=== PATIENT | male | born 1965 | race Caucasian/White ===

== ENCOUNTER 2016-11-19 08:20 | Day surgery (SDC) | payer BC ==
[~2016-11-19] VITALS: Ht 185.4 cm; Wt 100.0 kg
--- NOTE | ~2016-11-19 | OP ---
PATIENT NAME: JEISON MAYER MEDICAL RECORD: [id number] :67 LOCATION:D.OPS ADMISSION DATE: SURGEON: MAGO HAUSER MD DATE OF OPERATION: 11/19/2016 PREOPERATIVE DIAGNOSIS: Desires screening colonoscopy. POSTOPERATIVE DIAGNOSES: Desires screening colonoscopy with 2 colon polyps, one was a 1.2-cm polyp and was sessile, the other one was a 2.1-cm polyp and was semi-pedunculated. PROCEDURES: 1. Total colonoscopy to the cecum. 2. Hot biopsy forcep polypectomies times 2. SURGEON: Mago Hauser MD. CAN REFORMING MACHINE OPERATOR: None. BLOOD LOSS: Minimal. ANESTHESIA: IV sedation. COMPLICATIONS: None. The risks, possible complications and alternatives to the procedure were explained to the patient. He elects to proceed. ENDOSCOPIC COURSE: The patient was conveyed to the endoscopy suite electively on 11/19/2016. IV sedation was induced by the anesthesia staff. The patient was placed in Chaves position. A digital rectal examination was performed. The prostate was of normal size and was without nodules. A colonoscope was inserted through the anus. It was easily advanced to the cecum. The prep was adequate. I slowly withdrew the endoscope. I irrigated and aspirated extensively. I used combination of direct imaging as well as narrow band imaging. The pullback was greater than an 18-minute pullback. Two hot biopsy forcep polypectomies were performed. The polyps were removed in their entireties. A retroflexed view was obtained in the rectum. I then unretroflexed the scope and removed it under direct vision. I will see the patient in my office in 2-3 weeks. The patient will require surveillance and colonoscopies in the future and I will plan for his next surveillance colonoscopy to take place in 1 year and then every 3 years for the rest of his life. TRANSINT:[id number] Voice Confirmation ID: [id number] DOCUMENT ID: [id number] OPERATIVE REPORT [id number] MORENOMAGO BEAR MD CC: REBECCA VELEZ DO [id number] DICTATION DATE: 11/19/16 1312 THERMAL ENGINEER: 11/19/16 9010 [facility] 11/19/16 [facility] [address] [place] [address]
--- NOTE | ~2016-11-19 | HP ---
PATIENT: JEISON MAYER MEDICAL RECORD: [id number] ACCOUNT: [id number] LOCATION:[facility] : 67 ADMISSION DATE: 11/19/16 HISTORY AND PHYSICAL EXAMINATION CHIEF COMPLAINT: CHIEF COMPLAINT: Screening colonoscopy. HISTORY OF PRESENT ILLNESS: The patient has had no abdominal pain. No rectal bleeding. The risks, possible complications and alternatives to procedure were explained to the patient. He elects to proceed. SOCIAL HISTORY: Nonsmoker, he uses smokeless tobacco, however. PAST MEDICAL AND SURGICAL HISTORY: Hyperlipidemia. HOME MEDICATIONS: He is on statins. ALLERGIES: No known drug allergies. REVIEW OF SYSTEMS: Negative for diabetes or thyroid problems. PHYSICAL EXAMINATION: GENERAL: The patient does not appear acutely ill. He does not appear chronically ill. VITAL SIGNS: Reviewed. HEAD: External ears appear normal. EYES: Extraocular movements are intact. NECK: Trachea is midline. CHEST: No intercostal retractions. PULMONARY: Nonlabored, no stridor. ABDOMEN: No peritonitis with movement. IMPRESSION: Screening colonoscopy. PLAN: Will be screening colonoscopy. TRANSINT:[id number] Voice Confirmation ID: [id number] DOCUMENT ID: [id number] MAGO HAUSER MD CC: REBECCA VELEZ DO [id number] DICTATION DATE: 11/19/16 1106 SURGICAL ENDOSCOPIST: 11/19/16 1143 [facility] [address] [place] [address]
[2016-11-19 09:21] VITALS: BP 131/81; Ht 185.4 cm; Wt 100.0 kg
[2016-11-19] MEDS ORDERED: LIPITOR20 MG PO (09:23)
--- NOTE | 2016-11-19 12:33 | NUR ---
IV DC WITH CATHER TIP INTACT
--- NOTE | 2016-11-19 13:17 | NUR ---
1220 IV DC WITH CATHER TIP INTACT
--- NOTE | 2016-11-19 13:19 | NUR ---
1250 DR HAUSER IN ROOM TALKING WITH PATIENT
== END 2016-11-19 13:00 | disposition home or self-care (01) ==
LOC: D.OPS 08:20
DX: Z12.11 Encounter for screening for malignant neoplasm of colon (principal); K63.5 Polyp of colon